=== PATIENT | male | born 1945 | race Caucasian/White ===

== ENCOUNTER → 2016-03-28 | Day surgery (SDC) | payer OTHER ==
[~2016-03-28] VITALS: Ht 170.2 cm; Wt 74.4 kg
[~2016-03-28] MED LIST: ADVIL200 MG PO; ALDACTONE 25 MG25 MG PO; CLARITIN10 M1 PO; ESCITALOPRAM OX20 MG PO; ESCITALOPRAM20 MG PO; FISH OIL CONCEN1 SGL PO; FUROSEMIDE40 M1 PO; IRON SUPPLEMEN325 MG PO; LACTULOSE10 GM/15 M PO; LASIX40 MG PO; MOXIFLOXACIN H400 M1 PO; MULTI-DAY VITA1 EACH PO; OMEPRAZOLE40 M1 PO; PERCOCET 5-3251 EACH PO; PRILOSEC 20MG C20 MG PO; PROAIR HFA8.5 GM INH; SEA-OMEGA 50 C1 EACH PO; SPIRONOLACTONE50 M1 PO; SPIRONOLACTONE50 MG PO; TYLENOL ARTHRI650 M1 PO; XIFAXAN550 M1 PO; XIFAXAN550 MG PO
--- NOTE | 2016-03-28 14:29 | Operative Report ---
Operative/Inv Procedure Report Surgery Date: 03/28/16 Name of Procedure: Umbilical hernia repair with Mesh Pre-Operative Diagnosis: Umbilical/ventral hernia Post-Operative Diagnosis: Same Estimated Blood Loss: scant Surgeon/Television Director: KAY MCKINNON,RONALD Robb/enrique Staton Anesthesia: laryngeal mask airway Implants: 8 cm ventral X mesh Operative/Procedure Note Note: After consent he is brought to the operating room and laid supine. Gen. anesthesia was obtained and his abdomen was prepped and draped. The skin around the umbilicus was after local anesthesia. A curvilinear inferiorly based incision was made sharply. Subcutaneous tissues tissues were dissected with cautery. The hernia sac was dissected free from the overlying skin and umbilical stalk transected. performed with cautery. The hernia sac was dissected down the level of fascia. The fascia was incised with cutting cautery. The resultant defect was 3.5 cm in greatest dimension oriented transversely. I elected to repair with mesh. I created preperitoneal planes circumferentially with peanut dissection. Hemostasis achieved with direct pressure. The 8 cm ventral X mesh was placed into the preperitoneal cavity. It was held up against the fascia and fascia closed over it with interrupted 0 Maxon sutures. The mesh was anchored on the laterally based sutures anteriorly to keep it centered under the defect. The wound was irrigated with saline. The umbilical stalk re-created with 3-0 Vicryl. Incision then closed in layers of 3 -0 and 4-0 Vicryl. Steri-Strips and sterile dressing applied. Sponge and needle counts are correct CC: Shlomo ANGULO MD
== END ==
LOC: STS 02:29
DX: K42.9 Umbilical hernia without obstruction or gangrene (principal); K70.31 Alcoholic cirrhosis of liver with ascites; J44.9 Chronic obstructive pulmonary disease, unspecified; Z87.891 Personal history of nicotine dependence; Z99.81 Dependence on supplemental oxygen
CPT/HCPCS: C1781; J0131; J0690

== ENCOUNTER 2016-07-21 20:43 | Emergency (ER) | payer OTHER ==
[~2016-07-21 20:43] MED LIST changes: -PERCOCET 5-3251 EACH PO
--- NOTE | 2016-07-22 00:31 | ED DYSPNEA/ASTHMA COMPLAINT ---
History of Present Illness General Chief Complaint: General Adult Stated Complaint: L RIB PAIN Source: patient Exam Limitations: no limitations Vital Signs & Intake/Output Vital Signs & Intake/Output vv Allergies Coded Allergies: NO KNOWN ALLERGIES (03/23/16) Reconcile Medications Acetaminophen (Tylenol Arthritis) 650 MG TABLET.ER 2 TAB PO PRN ARTHRITIS ( Reported) Albuterol Sulfate (Proair Hfa) 8.5 GM HFA.AER.AD 2 PUF INH PRN EMPHYSEMA ( Reported) Escitalopram Oxalate 20 MG TABLET 1 TAB PO DAILY MENTAL HEALTH (Reported) Ferrous Sulfate (Iron Supplement) 325 MG TABLET 325 MG PO BID ANEMIA ( Reported) Fish Oil (Sea-[place] 50 Capsule) 1 EACH CAPSULE 1 CAP PO DAILY SUPPLEMENT ( Reported) Furosemide 40 MG TABLET 1 TAB PO BID WATER PILL (Reported) Loratadine (Claritin) 10 MG TABLET 1 TAB PO PRN ALLERGIES (Reported) Multivitamin (Multi-Day Vitamins) 1 EACH TABLET 1 TAB PO DAILY SUPPLEMENT ( Reported) Omeprazole 40 MG CAPSULE.DR 1 CAP PO DAILY GI (Reported) Oxycodone HCl/Acetaminophen (Percocet 5-325 MG Tablet) 5 MG-325 MG TABLET 1 TAB PO TID PRN PAIN Rifaximin (Xifaxan) 550 MG TABLET 1 TAB PO DAILY LIVER (Reported) Spironolactone 50 MG TABLET 1 TAB PO BID DIURETIC (Reported) Triage Nurses Notes Reviewed? yes Onset: Abrupt Duration: constant Timing: recent history Severity: severe HPI: Patient is a 70-year-old male who presents emergency room with a three-day history of trauma to the left anterior aspect of his ribs where he was trying to open a door his hand slipped and his elbow struck the left anterior aspect of his ribs resulting acute onset of pain. Patient denies any shortness of breath hemoptysis abdominal pain. Patient tried taking previously prescribed narcotics with minimal relief of symptoms. (HUNG KOVACS) Past History Medical History Any Pertinent Medical History? 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 Fxd left humerus. Psychosocial History Services at Home None What is your primary language Tunisian Family History Family History, If Any: FATHER, , Age 75; Cause: ESRD (end stage renal disease). MOTHER, , Age 75; Cause: Alzheimer disease. Hx Contributory? No (HUNG KOVACS) Review of Systems Review of Systems Constitutional: Reports: no symptoms. EENTM: Reports: no symptoms. Respiratory: Reports: see HPI. Cardiovascular: Reports: see HPI. GI: Reports: no symptoms. Genitourinary: Reports: no symptoms. Musculoskeletal: Reports: no symptoms. Skin: Reports: no symptoms. Neurological/Psychological: Reports: no symptoms. Hematologic/Endocrine: Reports: no symptoms. Immunologic/Allergic: Reports: no symptoms. All Other Systems: Reviewed and Negative (HUNG KOVACS) Physical Exam Physical Exam General Appearance: no apparent distress, alert Head: atraumatic Eyes: Bilateral: normal appearance. Ears, Nose, Throat: hearing grossly normal Respiratory: normal breath sounds, chest non-tender Cardiovascular: regular rate/rhythm Gastrointestinal: normal bowel sounds, soft, non-tender Extremities: normal inspection Neurologic/Psych: no motor/sensory deficits Diagram Chest, Abdomen, Back: 1) Normal inspection no step-off deformity severe point tenderness noted to the intercostal rib region Core Measures ACS in differential dx? No Severe Sepsis Present: No Septic Shock Present: No (HUNG KOVACS) Progress Differential Diagnosis: asthma, AMI, bronchitis, costochondritis, CHF, COPD, musculoskeletal pain, pericarditis, pulmonary embolism, pneumonia, pneumothorax, rib fracture, unstable angina Plan of Care: Patient currently is resting comfortable at bedside 98% room air oxygenation.\ NO respiratory distress It is dictated on x-ray findings for impression of the left ribs that there are no acute pulmonary findings and no displaced rib fracture IMPRESSION DICTATED BY MAYRA SANDOVAL Discussed results the patient will be treated for concerns of rib contusion Diagnostic Imaging: Viewed by Me: Radiology Read. Radiology Impression: no acute abnormality Initial ED EKG: none (HUNG KOVACS) Departure Departure Disposition: HOME OR SELF CARE Condition: Stable Clinical Impression Primary Impression: Contusion of rib on left side Referrals: KEV MCKINNON,Shlomo SCHAEFFER (PCP/Family) Additional Instructions: As discussed begin icing the area directly 20 minutes every 2 hours. Begin over -the-counter ibuprofen for pain and inflammation. Begin the prescription of Percocet for breakthrough pain. Prescriptions waiting at [facility] pharmacy. If symptoms worsen return to emergency room. If no better and one-week follow-up with the primary care doctor Departure Forms: Customer Survey General Discharge Information Prescriptions: Current Visit Scripts Oxycodone HCl/Acetaminophen (Percocet 5-325 MG Tablet) 1 TAB PO TID PRN PAIN #12 TAB (HUNG KOVACS) PA/BRIQUETTE MACHINE OPERATOR HELPER Co-Sign Statement Statement: ED Attending supervision documentation- [] I saw and evaluated the patient. I have also reviewed all the pertinent lab results and diagnostic results. I agree with the findings and the plan of care as documented in the PA's/BRIQUETTE MACHINE OPERATOR HELPER's documentation. [x] I have reviewed the ED Record and agree with the PA's/BRIQUETTE MACHINE OPERATOR HELPER's documentation. [] Additions or exceptions (if any) to the PAs/BRIQUETTE MACHINE OPERATOR HELPER's note and plan are summarized below: [] (ILDA MCKINNON,CAROL Diaz) Critical Care Note Critical Care Note Critical Care Time: non-applicable (HUNG KOVACS)
[2016-07-22] MEDS ORDERED: PERCOCET 5-3251 EACH PO (00:39)
[2016-07-22 00:59] VITALS: BP 136/78
--- NOTE | 2016-07-24 10:15 | RADIOLOGY REPORT ---
EXAMINATIONS: CHEST 1 VIEW AND LEFT RIBS CLINICAL INFORMATION: Left-sided pain. COMPARISON: 02/08/2016. TECHNIQUE: A PA radiograph of the chest was obtained in addition to several views of the left ribs. FINDINGS: The cardiac silhouette is not enlarged. The mediastinal and hilar contours are unremarkable. There are neither pleural effusions nor pneumothoraces. There are no consolidations. The osseous structures are stable with evidence of prior left shoulder surgery. There is age appropriate degenerative change to both AC joints. Specifically, no rib fractures are identified. IMPRESSION: No evidence for acute disease. Specifically, no rib fractures identified.
== END 2016-07-22 00:59 ==
LOC: ERH
DX: S20.212A Contusion of left front wall of thorax, initial encounter (principal); W22.8XXA Striking against or struck by other objects, initial encounter; Y92.9 Unspecified place or not applicable; Y93.9 Activity, unspecified
CPT/HCPCS: 71100-LT